=== PATIENT | female | born 2000 | race Two or more races ===

== ENCOUNTER 2024-06-18 02:59 | Emergency (ER) | payer BC ==
[~2024-06-18] VITALS: Ht 170.2 cm; Wt 75.3 kg
[2024-06-18] MEDS ORDERED: HALOPERIDOL LACTATE INJ 5 MG/ML VIAL ONE (03:11)
[2024-06-18] MEDS ORDERED: diphenhydrAMINE HCL 50 MG/ML VIAL ONE (03:11)
[2024-06-18] MEDS ORDERED: LORAZEPAM INJ 2 MG/ML VIAL ONE (03:11)
[2024-06-18] MEDS: diphenhydrAMINE HCL 50 MG/ML VIAL IM ONE (03:18)
[2024-06-18] MEDS: LORAZEPAM INJ 2 MG/ML VIAL IM ONE (03:18)
[2024-06-18] MEDS: HALOPERIDOL LACTATE INJ 5 MG/ML VIAL IM ONE (03:18)
[2024-06-18 09:59] VITALS: BP 110/65; TEMP 98.6; O2SAT 99
== END 2024-06-18 09:59 | disposition home or self-care (01) ==
LOC: ER 03:10
DX: F10.129 Alcohol abuse with intoxication, unspecified (principal); Y90.9 Presence of alcohol in blood, level not specified
CPT/HCPCS: 99285; 96372; J2060; J1200; J1630